=== PATIENT | female | born 1965 | race Two or more races ===

== ENCOUNTER → 2019-12-01 06:00 | Outpatient (CLI) | payer OTHER | END | disposition home or self-care (01) | LOC: LAB 06:00 → ADM 14:00 → AMB-ENDOS 12-05 14:00 → ADM 12-05 14:00 → EDSTATUS 12-05 14:00 | PROVIDERS: ATTEND Surgery | DX: K57.32 Diverticulitis of large intestine without perforation or abscess without bleeding (principal); R10.32 Left lower quadrant pain; K52.89 Other specified noninfective gastroenteritis and colitis; Z01.10 Encounter for examination of ears and hearing without abnormal findings; Z03.818 Encounter for observation for suspected exposure to other biological agents ruled out ==